=== PATIENT | female | born 1950 | race Caucasian/White ===

== ENCOUNTER → 2023-10-27 12:37 | Outpatient (REF) | payer MEDICARE, OTHER, SELFPAY | LOC: HWRCS 12:37 | PROVIDERS: ATTENDING PHYSICIAN Internal Medicine Cardiovascular Disease; FAMILY PHYSICIAN Family Medicine | DX: I48.0 Paroxysmal atrial fibrillation (principal); I35.0 Nonrheumatic aortic (valve) stenosis; I10 Essential (primary) hypertension | CPT/HCPCS: 93306 ==

== ENCOUNTER → 2024-12-27 10:30 | Outpatient (REF) | payer OTHER, SELFPAY | LOC: WDC 10:30 | PROVIDERS: ATTENDING PHYSICIAN Family Medicine | DX: N61.0 Mastitis without abscess (principal) | CPT/HCPCS: 76642; 77062; 77066 ==

== ENCOUNTER → 2025-01-05 08:05 | Outpatient (REF) | payer OTHER, SELFPAY ==
--- NOTE | 2025-01-05 13:26 | OID.BR.INTR ---
[facility] Breast Navigator - Initial
- -
Date of Contact: 01/05/25
Met with patient. Patient given written information on navigator service available at [facility]. Will follow up as needed per protocol.
== END ==
LOC: WDC 08:05
PROVIDERS: ATTENDING PHYSICIAN Family Medicine
DX: N63.10 Unspecified lump in the right breast, unspecified quadrant (principal); N63.41 Unspecified lump in right breast, subareolar
CPT/HCPCS: 19083; 88305; 88341; 88342; 88360; A4648

== ENCOUNTER 2025-02-07 06:15 | Day surgery (SDC) | payer OTHER, SELFPAY ==
[2025-01-24 11:32] LABS: Hematocrit 37.7 % (37.0-47.0); Hemoglobin 11.6 g/dL (12.0-16.0); Mean Corp Hgb Conc. 30.8 g/dL (33.0-37.0); Mean Corpuscular Volume 86.7 fL (81.0-99.0); Platelet Count 325 10^3/uL (130-400); Red Cell Dist. Width 16.1 % (11.5-14.5)
[2025-01-24 11:56] LABS: ALT (SGPT) 28 U/L (0-35); AST (SGOT) 25 U/L (14-36); Albumin 4.2 g/dl (3.5-5.0); Alkaline Phosphatase 91 U/L (38-126); Blood Urea Nitrogen 26 mg/dl (7-17); Calcium 9.3 mg/dl (8.4-10.2); Carbon Dioxide 29 mmol/L (22-30); Chloride 104 mmol/L (98-107); Glucose 161 mg/dl (70-99); Potassium 4.5 mmol/L (3.5-5.1); Sodium 143 mmol/L (135-145); Total Protein 6.9 g/dl (6.3-8.2); eGFR 47.80
[2025-01-24 12:03] LABS: Prealbumin (Transthyretin) 20.5 mg/dl (17.6-36.0)
[2025-01-24 12:14] LABS: Vitamin D, 25-OH*** 31.9 ng/mL (30-80)
[2025-01-24 14:05] VITALS: BMI 45.2
--- NOTE | 2025-01-25 15:07 | PTCARENOTE ---
Abnormal ECG done 01/24/[address] Main, no further intervention requested.
[2025-02-07] VITALS (11 sets, daily range): BP systolic 101–135; BP diastolic 56–89; BMI 45.2
[2025-02-07] MEDS: NORMOSOL-R/PLASMALYTE-A 1000 IV (07:13)
[2025-02-07 07:14] LABS: Glucose - Point of Care 154 mg/dl (70-99)
[2025-02-07] MEDS: VANCOCIN 200 IV (07:14)
[2025-02-07] MEDS: LOVENOX 40 MG SC (07:15)
[2025-02-07] MEDS: TYLENOL 1000 MG PO (07:15)
[2025-02-07 09:05] LABS: Glucose - Point of Care 166 mg/dl (70-99)
--- NOTE | 2025-02-07 09:10 | W.IMMPOSTOP ---
Surgical Immed Post Op Note
-
Primary Surgeon: Deann
Assisting Surgeon: None
Pre-op Diagnosis: Right breast ca
Post-op Diagnosis: Right breast ca
Procedure Performed: right lumpectomy and oncoplastic mastoplasty
Anesthesia Type: LMA
Specimen / Cultures: Right lumpectomy, margins
Estimated Blood Loss: 6cc
Complications: None
Operative Findings: None
--- NOTE | 2025-02-07 09:15 | OR.RPT ---
Operative Report
Operative Report
Date of procedure: 02/07/2025
Procedure: Right lumpectomy and oncoplastic mastoplasty
Surgeon: Deann
Preoperative diagnosis: Right breast carcinoma
Postoperative diagnosis: Right breast carcinoma
Procedure: Right lumpectomy and closure with oncoplastic mastoplasty
The patient is a 74-year-old female presenting with early stage favorable right breast carcinoma. She presents for lumpectomy and possible oncoplastic closure. The mass was palpable. She presented to same-day surgical services unit on the day of
the procedure and verified site and procedure. She was prepped and DVT and antibiotic prophylaxis were provided. She was taken to the operating room and in the supine position general anesthesia with an LMA mask was induced. Right breast was
prepped and draped in usual sterile fashion. All team members performed an appropriate timeout.
All tissues were anesthetized with 1% lidocaine plain. A medial circumareolar incision was made sharply with the blade overlying the area of the palpable mass. Skin flaps were elevated in the oncoplastic plane and a wide lumpectomy was performed
using the cautery. Time out of body was noted and the specimen was oriented for the pathologist and sent for permanent analysis. Additional margins were harvested for permanent analysis from the posterior, medial, superior, lateral, inferior, and
anterior dimensions. These were oriented as well and sent under separate cover.
This left a resulting defect a 7 x 7 cm, therefore, in an oncoplastic manner the oncoplastic plane was elevated circumferentially around the incision site. A separate parenchymal incision was made with the cautery to advance tissue advancement
flap. Hemostasis was verified and maintained with the cautery. Marcaine 0.5% plain was instilled into all tissues and hemoclips were placed in the resection cavity. The wound was closed in multiple layers using simple interrupted 3-0 Vicryl on
deep intermediate and superficial tissues. Skin was closed using simple interrupted 3-0 plain on subcutaneous tissue and a running subcuticular 4-0 Biosyn on skin. Several simple interrupted Biosyn's were placed for extra support as well.
Surgical glue and a sterile compressive dressing were applied. All sponge needle and instrument counts were correct and the patient was transferred to the recovery room in stable condition
([id number])
== END 2025-02-07 11:00 | disposition home or self-care (01) ==
LOC: SDS 06:15
PROVIDERS: ATTENDING PHYSICIAN Surgery; FAMILY PHYSICIAN Family Medicine
DX: C50.911 Malignant neoplasm of unspecified site of right female breast (principal); Z17.0 Estrogen receptor positive status [ER+]
CPT/HCPCS: 19301; 36415; 80053; 82306; 82962; 84134; 85027; 88305; 88307; 93005